=== PATIENT | male | born 1990 | race Caucasian/White ===

== ENCOUNTER 2018-01-08 10:21 | Outpatient (CLI) | payer OTHER ==
[~2018-01-08 10:21] MED LIST: FAMO-129 PO; ZOF4T PO
[2018-01-08 11:04] LABS: BASOPHILS % (AUTO) 0.7 % (0-1); EOSINOPHILS # (AUTO) 0.4 X10'3 (0-0.9); EOSINOPHILS % (AUTO) 6.1 % (0-6); HEMOGLOBIN 15.5 g/dl (14.0-17.9); LYMPHOCYTES % (AUTO) 33.2 % (21-51); MEAN CORPUSCULAR HEMOGLOBIN 30.8 PG (27.0-31.0); MEAN CORPUSCULAR HGB CONC 34.5 % (33.0-36.5); MEAN CORPUSCULAR VOLUME 89.2 FL (78-98); MEAN PLATELET VOLUME 8.3 FL (7.4-10.4); MONOCYTES # (AUTO) 0.5 X10'3 (0-0.9); MONOCYTES % (AUTO) 9.1 % (2-12); NEUTROPHILS % (AUTO) 50.9 % (42-75); PLATELET COUNT 195 X10'3 (140-440); RED BLOOD COUNT 5.04 X10'6 (4.70-6.10); RED CELL DISTRIBUTION WIDTH 12.7 % (11.5-14.5)
[2018-01-08 11:26] LABS: CLARITY,URINE CLEAR (Clear); COLOR,URINE YELLOW (Yellow); GLUCOSE, URINE NEGATIVE (Neg); KETONES,URINE NEGATIVE (Neg); LEUKOCYTE ESTERASE ,URINE NEGATIVE (Neg); NITRITES, URINE NEGATIVE (Neg); OCCULT BLOOD,URINE NEGATIVE (Neg); PROTEIN,URINE NEGATIVE (Neg); UROBILINOGEN,URINE 0.2 E.U/dL (0.2-1.0)
[2018-01-08 11:27] LABS: UA COLLECTION TYPE VOIDED
[2018-01-08 11:29] LABS: ALANINE AMINOTRANSFERASE 25 U/L (12-78); ALBUMIN 4.2 G/DL (3.4-5.0); ALBUMIN/GLOBULIN RATIO 1.4 (1.1-1.5); ALKALINE PHOSPHATASE 50 IU/L (46-116); ANION GAP 8 (8-16); ASPARTATE AMINO TRANSFERASE 13 U/L (10-37); BILIRUBIN,TOTAL 0.5 MG/DL (0.1-1.0); BLOOD UREA NITROGEN 14 MG/DL (7-18); BUN/CREATININE RATIO 12.6 (5.4-32.0); CALCIUM 9.2 MG/DL (8.5-10.1); CHLORIDE 105 MMOL/L (99-107); CHOL/HDL RATIO 2.7 (0.00-4.99); CHOLESTEROL 148 MG/DL (0-200); CREATININE 1.11 MG/DL (0.60-1.10); GLUCOSE 99 MG/DL (70-104); HDL CHOLESTEROL 54 MG/DL (35-60); LDL CHOLESTEROL 85 MG/DL (50-100); POTASSIUM 3.9 MMOL/L (3.5-5.1); SODIUM 141 MMOL/L (135-145); TOTAL CARBON DIOXIDE 27.7 MMOL/L (24-32); TOTAL PROTEIN 7.3 G/DL (6.4-8.2); TRIGLYCERIDES 39 MG/DL (20-135); eGFR 80 ML/MIN
== END 2018-01-08 23:59 | disposition home or self-care (01) ==
LOC: LAB 10:21
PROVIDERS: ATTEND Family Medicine
DX: Z00.01 Encounter for general adult medical examination with abnormal findings (principal); M54.5 Low back pain; R53.83 Other fatigue; R79.89 Other specified abnormal findings of blood chemistry
CPT/HCPCS: 36415; 72100; 80053; 80061; 81003; 84439; 84443; 85025

== ENCOUNTER 2019-07-29 09:57 | Emergency (ER) | payer OTHER ==
[~2019-07-29] VITALS: Ht 180.3 cm; Wt 86.4 kg
[2019-07-29] MEDS ORDERED: potassium Cl 20 mEq SR tablet PO STA (10:09)
[2019-07-29] MEDS ORDERED: LORazepam 2 mg/ml vial IV ONE (10:10)
[2019-07-29] MEDS ORDERED: magnesium 2GM in 50ml NS 50 ML IV ONE (10:10)
[2019-07-29] MEDS ORDERED: diltiazem 5mg/ml 5ml inj. IV ONE (10:10)
[2019-07-29 10:31] LABS: BASOPHILS % (AUTO) 0.7 % (0-1); EOSINOPHILS # (AUTO) 0.7 X10'3 (0-0.9); EOSINOPHILS % (AUTO) 9.1 % (0-6); HEMATOCRIT 46.6 % (42.0-52.0); HEMOGLOBIN 16.1 g/dl (14.0-17.9); LYMPHOCYTES # (AUTO) 2.2 X10'3 (1.1-4.8); LYMPHOCYTES % (AUTO) 31.1 % (21-51); MEAN CORPUSCULAR HEMOGLOBIN 30.1 PG (27.0-31.0); MEAN CORPUSCULAR HGB CONC 34.5 g/dL (33.0-36.5); MEAN CORPUSCULAR VOLUME 87.4 FL (78-98); MEAN PLATELET VOLUME 7.6 FL (7.4-10.4); MONOCYTES # (AUTO) 0.8 X10'3 (0-0.9); MONOCYTES % (AUTO) 11.4 % (2-12); NEUTROPHILS # (AUTO) 3.4 X10'3 (1.8-7.7); NEUTROPHILS % (AUTO) 47.7 % (42-75); PLATELET COUNT 213 X10'3 (140-440); RED BLOOD COUNT 5.33 X10'6 (4.70-6.10); RED CELL DISTRIBUTION WIDTH 13.2 % (11.5-14.5); WHITE BLOOD COUNT 7.2 X10'3 (4.5-11.0)
[2019-07-29 10:44] LABS: ALANINE AMINOTRANSFERASE 37 U/L (12-78); ALBUMIN 4.2 G/DL (3.4-5.0); ALBUMIN/GLOBULIN RATIO 1.1 (1.1-1.5); ALKALINE PHOSPHATASE 60 IU/L (46-116); ANION GAP 10 (8-16); ASPARTATE AMINO TRANSFERASE 21 U/L (10-37); BILIRUBIN,TOTAL 0.6 MG/DL (0.1-1.0); BLOOD UREA NITROGEN 15 MG/DL (7-18); CALCIUM 9.2 MG/DL (8.5-10.1); CHLORIDE 105 MMOL/L (99-107); CREATININE 0.94 MG/DL (0.60-1.10); GLUCOSE 94 MG/DL (70-104); MAGNESIUM 1.7 MG/DL (1.5-2.4); POTASSIUM 3.8 MMOL/L (3.5-5.1); SODIUM 139 MMOL/L (135-145); TOTAL CARBON DIOXIDE 23.7 MMOL/L (24-32); TOTAL PROTEIN 7.9 G/DL (6.4-8.2); eGFR > 90 ML/MIN
[2019-07-29] MEDS ORDERED: ketorolac trometh. 30mg/ml inj. IV ONE (10:45)
[2019-07-29] MEDS ORDERED: ketorolac tromethamine 15mg/ml inj. IV ONE (10:50)
[2019-07-29] MEDS ORDERED: normal saline 1000ML IV soln IVB ONE (10:50)
[2019-07-29] MEDS ORDERED: etomidate 2mg/ml inj. IV ONE (11:10)
--- NOTE | 2019-07-29 11:15 | NUR ---
Pt moved from Bed 16 to Bed 3
[2019-07-29 12:30] VITALS: BP 158/95
== END 2019-07-29 12:39 | disposition home or self-care (01) ==
LOC: EEVIPCON 09:57 → ER 09:57
DX: I48.91 Unspecified atrial fibrillation (principal); Z79.899 Other long term (current) drug therapy
CPT/HCPCS: 36415; 80053; 83735; 84484; 85025; 92960; 93005; 96365; 96375; 99291; J1885; J2060; J3475; J7030; 99152; J3490

== ENCOUNTER 2019-09-30 09:32 | Day surgery (SDC) | payer OTHER ==
[~2019-09-30] VITALS: Ht 180.3 cm; Wt 90.9 kg
[2019-09-30 09:37] VITALS: BP 151/93
[2019-09-30] MEDS ORDERED: NO HOME MEDS (09:49)
[2019-09-30] MEDS ORDERED: fentaNYL/PF 50MCG/1 ML 2ML syringe ONE (10:05)
[2019-09-30] MEDS ORDERED: LIDOcaine Viscous 15ml cup ONE (10:05)
[2019-09-30] MEDS ORDERED: MIDAZolam 5mg/5ml vial ONE (10:05)
[2019-09-30 10:22] VITALS: BP 126/85
[2019-09-30 10:32] VITALS: BP 127/80
[2019-09-30 10:42] VITALS: BP 127/81
[2019-09-30 10:52] VITALS: BP 144/83
== END 2019-09-30 10:57 | disposition home or self-care (01) ==
LOC: GI LAB 09:32
PROVIDERS: ATTEND Internal Medicine Gastroenterology
DX: R13.10 Dysphagia, unspecified (principal); K44.9 Diaphragmatic hernia without obstruction or gangrene; K21.0 Gastro-esophageal reflux disease with esophagitis; K29.70 Gastritis, unspecified, without bleeding; K31.89 Other diseases of stomach and duodenum
CPT/HCPCS: 43239; 43450; J2250; J3010; J7040; 43233; 99152; A4620

== ENCOUNTER 2020-09-26 07:34 | Outpatient (CLI) | payer BC ==
[~2020-09-26 07:34] MED LIST changes: -FAMO-129 PO; +NO HOME MEDS; -ZOF4T PO
[2020-09-26] MEDS ORDERED: iohexol 300mg/ml 100ml inj. ONE (08:36)
== END 2020-09-26 23:59 | disposition home or self-care (01) ==
LOC: 64 CT 07:34
PROVIDERS: ATTEND Family Medicine
DX: R91.1 Solitary pulmonary nodule (principal); K76.89 Other specified diseases of liver
CPT/HCPCS: 71250; 74177; Q9967

== ENCOUNTER 2020-12-06 07:58 | Day surgery (SDC) | payer BC ==
[~2020-12-06] VITALS: Ht 182.9 cm; Wt 95.5 kg
[2020-12-06 08:03] VITALS: BP 157/96
[2020-12-06] MEDS ORDERED: PANT-47 PO (08:08)
[2020-12-06] MEDS ORDERED: LIDOcaine Viscous 15ml cup ONE (08:21)
[2020-12-06] MEDS ORDERED: MIDAZolam 1 MG/ML 5ML VIAL ONE (08:21)
[2020-12-06] MEDS ORDERED: fentaNYL/PF 50MCG/1 ML 2ML syringe ONE (08:21)
[2020-12-06 10:36] VITALS: BP 130/84
[2020-12-06 10:46] VITALS: BP 118/77
[2020-12-06 10:56] VITALS: BP 117/71
[2020-12-06 11:06] VITALS: BP 117/70
== END 2020-12-06 11:25 | disposition home or self-care (01) ==
LOC: GI LAB 07:58
PROVIDERS: ATTEND Internal Medicine Gastroenterology
DX: R13.10 Dysphagia, unspecified (principal); K22.2 Esophageal obstruction; K29.70 Gastritis, unspecified, without bleeding; K21.00 Gastro-esophageal reflux disease with esophagitis, without bleeding; K44.9 Diaphragmatic hernia without obstruction or gangrene
CPT/HCPCS: 43239; 43450; J2250; J3010; J7040; 99152; A4620

== ENCOUNTER 2021-02-06 16:17 | Emergency (ER) | payer BC ==
[~2021-02-06] VITALS: Ht 182.9 cm; Wt 95.9 kg
[~2021-02-06 16:17] MED LIST changes: -NO HOME MEDS; +PANT-47 PO
== END 2021-02-06 17:11 | disposition home or self-care (01) ==
LOC: ER 16:18 → EEVIPCON 16:18 → ER 17:11
DX: S93.601A Unspecified sprain of right foot, initial encounter (principal); M79.671 Pain in right foot; Z79.899 Other long term (current) drug therapy; W18.39XA Other fall on same level, initial encounter; Y93.89 Activity, other specified; Y92.89 Other specified places as the place of occurrence of the external cause; Y99.8 Other external cause status
CPT/HCPCS: 73630; 99283